=== PATIENT | female | born 1955 | race Two or more races ===

== ENCOUNTER → 2025-02-05 | Outpatient (CLI) | payer MEDICARE, MEDICAID, SELFPAY ==
--- NOTE | 2025-02-05 11:15 | XR_ITS ---
Examination: Screening digital mammography, bilateral Computer aided detection 3-D breast Tomosynthesis, bilateral Date and time of exam: February 05, 2025 1042 hours Compared to mammograms dating to December 05, 2018 Indication: Screening Technique: Nonmagnified MLO, CC views of the breasts to been obtained, reconstructed from 3-D Tomosynthesis images. R2 computer aided detection program utilized for evaluation of suspicious masses and/or abnormal calcifications. 3-D Tomosynthesis images obtained. Findings: Scattered areas of fibroglandular density Benign calcifications No interval suspicious masses Impression: BI-RADS category II: Benign Findings. Recommend 1 year follow-up mammogram.
== END | disposition home or self-care (01) ==
LOC: CDIM 10:30
PROVIDERS: Referring Provider Physician Assistant; Visit Provider Physician Assistant
DX: Z12.31 Encounter for screening mammogram for malignant neoplasm of breast (principal); R92.323 Mammographic fibroglandular density, bilateral breasts; R92.1 Mammographic calcification found on diagnostic imaging of breast
CPT/HCPCS: 77063; 77067

== ENCOUNTER 2025-06-06 15:28 | Emergency (ER) | payer MEDICARE, MEDICAID, SELFPAY ==
[2025-06-06 15:48] VITALS: BP 106/61; PULSE 82; RESP 18; TEMP 37.2; O2SAT 97; BMI 33.6
--- NOTE | 2025-06-06 15:53 | EKG_ITS ---
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
--- NOTE | 2025-06-06 15:53 | XR_ITS ---
Examination: CT abdomen and pelvis without contrast. Coronal 3-D reconstructions. Sagittal 2-D reconstructions. Date and time of exam:June 06, 2025, 1608 hours Comparison May 14, 2024 INDICATIONS: Lower abdominal pain with nausea vomiting beginning 2 weeks ago CTDI: vol (mGy): 11 DLP: (mGycm): 618 Technique: Axial images of the abdomen have been obtained, 3 mm slice thickness Intravenous contrast material has not been administered. Low dose protocols were performed. One or more of the following dose reduction techniques were used; automated exposure control, adjustment of the mA and/or KV according to patient size, use of iterative reconstruction technique. Findings: Liver is irregular contour Stable anterior liver cysts Absent gallbladder No pancreatic or adrenal mass No renal or ureteral calculi, no hydronephrosis Normal appendix No bowel obstruction Large fat-containing left pelvic wall hernia defect, the defect 3.7 cm, though fat-containing hernia sac measuring 13 cm Contracted urinary bladder Severe osteopenia with chronic osteoporotic compressions L5, L2, L1 IMPRESSION: Suspect primary hepatocellular disease. No renal or ureteral calculi, no hydronephrosis. Normal appendix Large pelvic wall hernia defect, 3.7 cm, containing fat, the hernia sac itself measuring 13 cm
--- NOTE | 2025-06-06 15:54 | PD.EDRME ---
Rapid Medical Screening Exam RME Arrival date/time: 06/06/25 15:28 70-year-old female presents to the Emergency Department for complaint of abdominal pain Chief Complaint: Nausea/Vomiting/Diarrhea Vital signs: Vital Signs Temperature 99 F 06/06/25 15:48 Pulse Rate 82 06/06/25 15:48 Respiratory Rate 18 06/06/25 15:48 Blood Pressure 106/61 06/06/25 15:48 Pulse Oximetry (%) 97 06/06/25 15:48 Oxygen Delivery Method Room Air 06/06/25 15:48
[2025-06-06 16:20] LABS: Basophils # (Auto) 0.0 Thou/mm3 (0.0-0.2); Basophils % (Auto) 1 % (0-2.5); Eosinophils # (Auto) 0.1 Thou/mm3 (0.0-0.5); Eosinophils % (Auto) 2 % (0-10); Hematocrit 42.8 % (36.0-46.0); Hemoglobin 14.2 g/dL (12.0-16.0); Immature Granulocytes Auto 0.01 Thou/mm3 (0.00-0.00); Lymphocytes # (Auto) 1.4 Thou/mm3 (1.0-4.8); Lymphocytes % (Auto) 23 % (10-50); Mean Corpuscular HGB Conc 33.2 g/dl (31.0-37.0); Mean Corpuscular Hemoglobin 33.1 pg (25.0-35.0); Mean Corpuscular Volume 100 fL (80-100); Monocytes # (Auto) 0.5 Thou/mm3 (0.0-0.8); Monocytes % (Auto) 9 % (0-12); Neutrophils # (Auto) 3.8 Thou/mm3 (1.8-7.7); Neutrophils % (Auto) 65 % (37-80); Nucleated Red Blood Cell # 0.00 Thou/mm3 (0.00-0.00); Nucleated Red Blood Cell % 0 /100 WBC (0); Platelet Count 265 Thou/mm3 (140-440); RDW Standard Deviation 54.5 fL (36.4-46.3); Red Blood Count 4.29 Miln/mm3 (4.00-5.20); White Blood Count 5.9 Thou/mm3 (3.6-11.0)
[2025-06-06 16:35] LABS: Collection Type, Urine Clean Catch
[2025-06-06 16:48] LABS: Alanine Aminotransferase 24 U/L (10-49); Albumin, Serum 4.3 gm/dL (3.4-4.8); Albumin/Globulin Ratio 1.7 (1.2-2.2); Alkaline Phosphatase 76 U/L (46-116); Anion Gap 13 (7-16); Aspartate Amino Transferase 22 U/L (0-34); BUN/Creatinine Ratio 17 Ratio (12-20); Bilirubin,Total 0.9 mg/dL (0.3-1.2); Blood Urea Nitrogen 32 mg/dL (9-23); Calcium 9.9 mg/dL (8.3-10.6); Calcium (Corrected) 9.9 mg/dL (8.5-10.1); Carbon Dioxide 23.4 mMol/L (20.0-31.0); Chloride 107 mMol/L (98-107); Creatinine (Component) 1.9 mg/dL (0.6-1.3); Estimated Creatinine Clearance 26.9 mL/min (>60); Globulin 2.5 gm/dL (2.3-3.5); Glucose 106 mg/dL (74-106); Lipase 42 U/L (12-53); Osmolality,Calculated 291 (275-295); Potassium 4.6 mMol/L (3.4-5.1); Sodium 143 mMol/L (136-145); Total Protein 6.8 gm/dL (5.7-8.2); Troponin I < 0.002 ng/mL (0.0-0.045); eGFR 28 See Note
[2025-06-06 17:10] LABS: Bacteria,Urine 3+; Bilirubin,Urine Negative (Negative); Blood,Urine Negative (Negative); Color,Urine Yellow (Lt Yel-Yel); Culture Indicated,Urine Contaminated; Glucose, Urine 4+ (Negative); Hyaline Casts,Urine 1 /hpf (0-1); Ketones,Urine Negative (Negative); Leukocyte Esterase,Urine Negative (Negative); Nitrite,Urine Negative (Negative); PH,Urine 5.5 (5.0-7.0); Protein,Urine 1+ (Neg - Trace); RBC,Urine 4 /hpf (0-3); Specific Gravity,Urine 1.023 (1.001-1.035); Squamous Epithelial Cell,Urine 13 /hpf (0-5); Urobilinogen,Urine 2.0 mg/dL (0.0-1.0); WBC,Urine 12 /hpf (0-5)
[2025-06-06 17:13] LABS: Clarity,Urine Hazy (Clear/Hazy)
--- NOTE | 2025-06-06 20:13 | PD.EDNV ---
Nausea/Vomit./Diarrhea-RME/HPI General Chief complaint: Nausea/Vomiting/Diarrhea Stated complaint: Vomiting, abdominal pain X 2 weeks Time Seen by Provider: 06/06/25 18:15 Arrival date/time: 06/06/25 15:28 RME / HPI RME / HPI Narrative: 06/06/25 15:28 70-year-old female presents to the Emergency Department for complaint of abdominal pain DR. COE MAIN ED EVALUATION: Patient presents with intermittent nausea, vomiting, and epigastric discomfort x about 2 weeks duration. Denies fever, chills, and diarrhea. Reports dysuria. No relief after having been prescribed Prilozac /Zofran by PCP. PMH of diabetes, hypertension, and hypothyroidism. PSHx of Cholecystectomy and . No allergies to medications. Social history negative for tobacco and alcohol. Related Data Home Medications ?Medication ?Instructions ?Recorded ?Confirmed atorvastatin 20 mg tablet 1 tab PO QDAY 04/15/22 04/18/24 levothyroxine 50 mcg tablet 1 tab PO QDAY 04/15/22 04/18/24 (Euthyrox) lisinopril 20 mg tablet 1 tab PO QDAY 04/15/22 04/18/24 metformin 1,000 mg tablet 1 tab PO QDAY 04/15/22 04/18/24 Previous Rx's ?Medication ?Instructions ?Recorded esomeprazole magnesium 20 mg 20 mg PO QDAY #20 caps 04/18/24 capsule,delayed release (Nexium) cefdinir 300 mg capsule 300 mg PO BID 7 days #14 caps 06/06/25 metoclopramide HCl 5 mg tablet 5 mg PO AC #20 tabs 06/06/25 (Reglan) Allergies Allergy/AdvReac Type Severity Reaction Status Date / Time No Known Allergies Allergy Verified 06/06/25 15:35 Review of Systems Review of Systems Systems Reviewed: All systems reviewed, normal except as documented Past Medical History Past Medical History CARDIAC: Positive Hypercholesterolemia and Hypertension GASTROINTESTINAL: Positive Gastrointestinal Disorders (gastritis) ENDOCRINE: Positive Diabetes Mellitus Type 2 and Hypothyroidism ED Exam Narrative Physical exam: GEN. APPEARANCE: The patient is alert awake oriented X-3 in no distress, lying down comfortably, does not look ill/toxic. Patient has good eye contact. Patient is cooperative. Complains of mild nausea. VITALS: All vitals were reviewed and the pulse ox is 97% on room air which is normal according to my interpretation. HEENT: Normocephalic, atraumatic. Pupils are equal and reactive. Oral mucosa is moist. Patent Nares NECK: Supple, nontender, no thyromegaly, no meningismus, no JVD, no step offs CHEST: Symmetrical, atraumatic, and with equal expansion , Nontender on palpation no deformity and no crepitus. CARDIOVASCULAR: Heart regular rhythm no murmur or gallop rub or extra beats. LUNGS: Clear to auscultation bilaterally with symmetrical chest rise. No laboring tachypnea or wheezing. No intercostal subcostal retraction. No rales and no rhonchi. ABDOMEN: Soft, obese, mildly tender epigastrium, no guarding or rebound tenderness. There are no abnormal masses palpated. Active and normal bowel sounds. EXTREMITIES: Nontender. No edema. No cyanosis. Patient is able to move all 4 extremities well, with full ROM and good CSM. SKIN: Warm and dry, no jaundice or rashes noted. MUSCULOSKELETAL: No lubar or midline bony tenderness. There is no CVA tenderness. No paraspinal muscle spasm or tenderness. NEURO: Patient is KHAN x 4, Cranial nerves II through XII grossly intact. There is no focal neurologic deficits noted. GCS is 15, PNS and ELECTRONIC DRAFTER appear grossly intact. PSYCHIATRIC: Patient is in normal mood and affect, cooperative, no SI or HI or hallucinations. Course Quality Measures none Orders Category Date Time Status EKG (ED ONLY) *Do not use* NOW Care 06/06/25 15:[address] abdomen pelvis wo con Stat Exams 06/06/25 15:53 Completed EKG (ED Only) Stat Exams 06/06/25 15:53 Draft CBC Stat Lab 06/06/25 16:00 Completed Comprehensive Metabolic Panel Stat Lab 06/06/25 16:00 Completed Lipase Stat Lab 06/06/25 16:00 Completed Troponin I Stat Lab 06/06/25 16:00 Completed UA, C/S IF [Urinalysis, C/S if Indicated] Stat Lab 06/06/25 16:20 Completed Metoclopramide Inj [Reglan Inj] Med 06/06/25 20:11 Discontinued 5 mg IVP X1 ONE Sodium Chloride 0.9% 1000 ml [Ns] 1,000 ml Med 06/06/25 20:10 Active IV 999 mls/hr cefTRIAXone/D5w 1gm IV premix [Rocephin/D5w 1gm IV Med 06/06/25 20:11 Active premix] 1 gm in 50 ml IV X1 Vital Signs Vital signs: Vital Signs Temperature 99 F 06/06/25 15:48 Pulse Rate 82 06/06/25 15:48 Respiratory Rate 18 06/06/25 15:48 Blood Pressure 106/61 06/06/25 15:48 Pulse Oximetry (%) 97 06/06/25 15:48 Oxygen Delivery Method Room Air 06/06/25 15:48 Nausea/Vomiting/Diarrhea MDM Narrative MDM Narrative:: Scribe Attestation: Ivelisse Reyes, am scribing for and in the presence of Dr. Coe. Provider Notation: Although this document has been carefully reviewed, there may still be some phonetic and other typographical errors. These errors are purely grammatical due to imperfections in the software program and should not be construed in any way to? compromise the substance of the patient's medical care during this visit. Patient presents with intermittent nausea, vomiting, and epigastric discomfort x about 2 weeks duration. Denies fever, chills, and diarrhea. Please PE findings. Laboratory markers demonstrate normal WBC count, no anemia or thrombocytopenia. Serum chemistries show evidence of acute renal insufficiency with creatinine of 1.9 (baseline 0.7). UA demonstrates 4+ glucose, pyuria, 3+ bacteria, and slightly contaminated with 13 epis. Will hydrate with saline to correct volume deficit and imperical antibiotics administered in addition to antiemetics. Patient considered stable for discharge. Will substitute Reglan instead of Zofran and Rocephin for antibiotic treatment. Close F/U recommended for repeat UA in 1 week with PMD. Precautionary instructions given. Clinical impression of UTI and acute renal insufficiency. Precautionary instructions provided. Patient data External records reviewed:: [facility] previous records (Reviewed prior ED records from 05/14/24. Patient was seen for Acute UTI.) Clinical information provided by:: patient Social determinants that could affect healthcare access:: none Patient has the following chronic illnesses:: Hypercholesterolemia, Hypertension, Gastritis, Diabetes Mellitus Type 2 and Hypothyroidism How is presenting disease/condition affected by chronic disease/condition?: exacerbated by Evaluation data The following diagnostics were reviewed and interpreted by me:: lab results and radiology exam(s) Lab and/or radiology exams considered but not ordered:: None Interpretation Summary: RADIOLOGY Abdomen/Pelvis CT: Findings: Liver is irregular contour Stable anterior liver cysts Absent gallbladder No pancreatic or adrenal mass No renal or ureteral calculi, no hydronephrosis Normal appendix No bowel obstruction Large fat-containing left pelvic wall hernia defect, the defect 3.7 cm, though fat-containing hernia sac measuring 13 cm Contracted urinary bladder Severe osteopenia with chronic osteoporotic compressions L5, L2, L1 IMPRESSION: Suspect primary hepatocellular disease. No renal or ureteral calculi, no hydronephrosis. Normal appendix Large pelvic wall hernia defect, 3.7 cm, containing fat, the hernia sac itself measuring 13 cm Medications / Prescriptions Medications / Prescriptions considered but not ordered:: None Medication administrations:: Medication Administration History Sodium Chloride (Ns) 1,000 mls @ 999 mls/hr IV .Q1H1M ONE Stop: 06/06/25 21:10 Ceftriaxone Sodium/Dextrose (Rocephin/D5w 1gm Iv Premix) 1 gm in 50 mls @ 100 mls/hr IV X1 ONE Stop: 06/06/25 20:40 Discontinued Medications Metoclopramide HCl (Metoclopramide Inj 5 Mg/Ml Vial 2 Ml) 5 mg IVP X1 ONE; Protocol Stop: 06/06/25 20:12 See above if any Consultations Consultation(s) initiated? (list below): No Diagnosis Nausea Differential Diagnosis: food poisoning, gastroenteritis, dehydration and other (UTI, Cystitis, GERD) Most likely diagnosis given after review of the tests above:: Acute UTI, Acute renal insufficiency Admission Indicated Admission indicated?: not indicated Explain why admission is indicated or not indicated:: Patient does not meet admission criteria. Admission Request Was there a request for admission?: No Disposition Plan Disposition Plan: Discharge Discharge Attestation Discharge Attestation: The patient and all family members were given an opportunity to ask questions and understood the discharge instructions. Discharge instructions specifically effects, indications for sooner follow up or return to the emergency department, and the expected course of current diagnosis. Patient condition: Stable Discharge Plan Plan Patient Disposition: HOME (Self Care) Discharge Disposition comment: STABLE Prescriptions/Referrals Prescriptions/Med Rec: New metoclopramide HCl [Reglan] 5 mg tablet 5 mg PO AC Qty: 20 0RF cefdinir 300 mg capsule 300 mg PO BID 7 Days Qty: 14 0RF No Action atorvastatin 20 mg tablet 1 tab PO QDAY lisinopril 20 mg tablet 1 tab PO QDAY levothyroxine [Euthyrox] 50 mcg tablet 1 tab PO QDAY metformin 1,000 mg tablet 1 tab PO QDAY esomeprazole magnesium [Nexium] 20 mg capsule,delayed release(DR/EC) 20 mg PO QDAY Qty: 20 0RF Referrals: Arminda Quinonez PA-C [Primary Care Provider] - In 1 week Problem List Clinical Impression: Acute UTI, Acute renal insufficiency Patient/Caregiver Discharge Instructions Education Materials: ED CYSTITIS Female Adult, ED Renal Insufficiency Additional Instructions: Force fluids/maintain adequate rest/medications as directed. Follow-up with primary care doctor in 1 to 2 weeks return if worsening Print Language: Bel[place]ian Stand Alone Forms: [employer] Award Info., Patient Portal Info Letter
[2025-06-06] MEDS: SODIUM CHLORIDE 0.9% 1000 ML 1,000 ML 999 ML IV (20:27)
[2025-06-06] MEDS: METOCLOPRAMIDE INJ 5 MG/ML VIAL 2 ML IVP (20:50)
[2025-06-06] MEDS: cefTRIAXone/D5w 1gm IV premix 1 GM/50 ML BAG IV (20:52)
== END 2025-06-06 21:44 | disposition home or self-care (01) ==
PROVIDERS: Nurse Practitioner Primary Care; Emergency Provider Emergency Medicine; PCP Physician Assistant
DX: N39.0 Urinary tract infection, site not specified (principal); N28.9 Disorder of kidney and ureter, unspecified; K46.9 Unspecified abdominal hernia without obstruction or gangrene; I10 Essential (primary) hypertension; E78.00 Pure hypercholesterolemia, unspecified
CPT/HCPCS: 36415; 74176; 80053; 81001; 83690; 84484; 85025; 93005; 96365; 96375; 99283; J0696; J2765; J7030